=== PATIENT | female | born 1965 | race American Indian/Alaskan Native ===

== ENCOUNTER 2017-12-09 15:35 | Outpatient (CLI) | payer OTHER ==
--- NOTE | 2017-12-09 16:31 | XRay Report ---
FINAL REPORT PROCEDURE: XR SPINE LUMBOSACRAL 2-3V TECHNIQUE: Lumbar spine radiographs, including AP, lateral, and lumbosacral spot views. CPT 31336 HISTORY: LOW BACK PAIN COMPARISON: No prior studies are available for comparison. FINDINGS: Alignment: Normal. Vertebral body heights/Disk spaces: Normal. Fracture(s): None. Facets: Normal. Bone mineralization: Normal. IMPRESSION: Normal Examination.
--- NOTE | 2017-12-09 16:34 | XRay Report ---
FINAL REPORT PROCEDURE: XR KNEE BILAT 1-2V TECHNIQUE: Bilateral knee radiographs, AP and lateral views. HISTORY: PAIN IN LEFT RIGHT KNEE COMPARISON: No prior studies are available for comparison. FINDINGS: There is no evidence of an acute fracture or dislocation. There is moderate narrowing of the patellofemoral joint space and medial joint compartment bilaterally. Moderate spur formation off the osseous structures globally. The soft tissues have a normal appearance. Mild generalized osteopenia is noted. IMPRESSION: There is no evidence of an acute fracture or dislocation. Moderate arthritis bilateral knees as described.
== END 2017-12-09 15:36 | disposition home or self-care (01) ==
LOC: XRAY 15:35
PROVIDERS: ATTEND Internal Medicine
DX: Z02.71 Encounter for disability determination (principal); M17.0 Bilateral primary osteoarthritis of knee; M85.861 Other specified disorders of bone density and structure, right lower leg; M85.862 Other specified disorders of bone density and structure, left lower leg; M54.5 Low back pain
CPT/HCPCS: 72100